=== PATIENT | male | born 1990 ===

== ENCOUNTER 2018-03-17 18:35 | Emergency (ER) | payer OTHER ==
[2018-03-17 18:46] VITALS: BP 136/85
--- NOTE | 2018-03-17 19:14 | EDPHY ---
H & P Time Seen by Provider: 03/17/18 19:05 HPI/ROS: CHIEF COMPLAINT: Head injury HISTORY OF PRESENT ILLNESS: The patient is a 27-year-old male who presents emergency department after striking his head into a tree while skiing. Patient was wearing a helmet. He states there was a small divot in his helmet. He was able to ski for the rest the day. He did not lose consciousness. No focal weakness or numbness. No visual change. Patient denies headache. He has no significant neck pain. Patient is not taking blood thinner. No previous concussion. REVIEW OF SYSTEMS: Negative Past Medical/Surgical History: No previous head injury Smoking Status: Never smoked Physical Exam: Vitals noted GENERAL: Well-appearing, in no acute distress, alert. HEENT: Eyes normal to inspection. NECK: Normal, supple. Nexus negative RESPIRATORY: Clear to auscultation bilaterally, no rales, rhonchi or wheezing. CVS: Regular rate and rhythm, no rubs, murmurs, or gallops. ABDOMEN: Soft, nontender, nondistended, no organomegaly. BACK: Normal to inspection, no CVA tenderness. SKIN: Normal color, no rash, warm, dry. No pallor. EXTREMITIES: No pedal edema, no calf tenderness, no Homans sign or cords, no joint swelling. NEURO/PSYCH: Higher functions: Alert and Oriented x3. Normal speech and cognition. Normal mood and affect. Cranial nerves: Normal as tested. Cerebellar: Normal as tested. Normal gait. Peripheral exam: Normal motor exam. Normal sensation. Constitutional: Initial Vital Signs Temperature (C) 36.7 C 03/17/18 18:44 Heart Rate 61 03/17/18 18:44 Respiratory Rate 18 03/17/18 18:44 Blood Pressure 136/85 H 03/17/18 18:44 O2 Sat (%) 99 03/17/18 18:44 O2 Delivery Mode Room Air Allergies/Adverse Reactions: No Known Allergies Allergy (Unverified 03/17/18 18:46) Home Medications: Medication Instructions Recorded NK [No Known Home Meds] 03/17/18 Medical Decision Making ED Course/Re-evaluation: In the emergency department I discussed possible etiologies with the patient. I answered all his questions. At this time I do not feel he needs CT imaging. I explained this to the patient. He feels comfortable this plan. He was given closed-head injury precautions. Differential Diagnosis: My differential includes but is not limited to concussion, head injury, subarachnoid hemorrhage, subdural hematoma, epidural hematoma Departure - Departure Disposition: Home, Routine, Self-Care Clinical Impression: Head injury Qualifiers: Encounter type: initial encounter Qualified Code(s): S09.90XA - Unspecified injury of head, initial encounter Condition: Good Instructions: Head Injury (ED) Additional Instructions: Slowly work yourself into cognitive functioning. Return with increasing pain, vomiting, weakness, numbness or any other concerns. Referrals: Lesly Montez MD [Medical Doctor] - 5-7 days, if not improved
== END 2018-03-17 19:19 | disposition home or self-care (01) ==
DX: S09.90XA Unspecified injury of head, initial encounter (principal); W22.8XXA Striking against or struck by other objects, initial encounter; Y93.23 Activity, snow (alpine) (downhill) skiing, snowboarding, sledding, tobogganing and snow tubing; Y92.828 Other wilderness area as the place of occurrence of the external cause